=== PATIENT | female | born 2005 | race Caucasian/White ===

== ENCOUNTER 2023-09-20 20:53 | Emergency (ER) | payer OTHER, SELFPAY ==
[2023-09-20 20:54] VITALS: BP 136/72
[2023-09-20 21:52] VITALS: BMI 22.2
[2023-09-20] MEDS: NSS 1000 IV (21:52)
[2023-09-20 21:58] LABS: % Basophils 0.2 % (0-2); % Eosinophils 1.3 % (0-6); % Immature Granulocytes 0.4 % (0-0.5); % Lymphocytes 15.1 % (20.5-51.1); % Monocytes 5.4 % (1.7-9.3); % Neutrophils 77.6 % (42.2-75.2); Absolute Eosinophils 0.1 10^3/uL (0-0.7); Absolute Lymphocytes 1.6 10^3/uL (1.2-3.4); Absolute Monocytes 0.6 10^3/uL (0.1-0.6); Hemoglobin 13.3 g/dL (12.0-16.0); Mean Corp Hgb Conc. 35.9 g/dL (33.0-37.0); Mean Corpuscular Hgb 30.3 pg (27.0-31.0); Mean Corpuscular Volume 84.3 fL (81.0-99.0); Mean Platelet Volume 9.1 fL (7.4-10.4); Nucleated Red Blood Cells % 0 %; Platelet Count 282 10^3/uL (130-400); Red Blood Cell Count 4.39 10^6/uL (4.20-5.40); Red Cell Dist. Width 12.3 % (11.5-14.5); White Blood Cell Count 10.3 10^3/uL (4.8-10.8)
--- NOTE | 2023-09-20 22:14 | ED.GENMED ---
History of Present Illness
General
Chief Complaint: Problems
Source: patient
Exam Limitations: none
Time Seen by Provider: 09/20/23 21:20
Nursing documentation reviewed up to this point in time: agreed with
Travel History
Have you had any contact with someone who has COVID-19?: No
Do you have any symptoms of coronavirus? Fever > 100 degrees, chills, cough, shortness of breath, sore throat, loss of taste or smell, muscle aches, or headache?: No
History of Present Illness
History of Present Illness:
18-year-old female 3 para 1 AB 1 states her LMP was 06/27 and she had a normal 8-week gestational ultrasound at [facility] about 2 weeks ago. She states she started spotting vaginally last night and today the bleeding was heavier with cramps.
She does not notice any clots or tissue.
Her baby is 11 months old, she had preeclampsia during that . She delivered here and was seeing Dr. Angeles. She went to [facility] for the ultrasound but she does not want to go back to them and is interested in being followed by
[facility].
Past History
Past History
ED Past Medical History: Psychiatric (Depression, Anxiety, suicidal attempt) and Other (Migraine)
ED Past Surgical History: Gynecological () and Other ([place] tooth extraction)
Social History
Tobacco: Vaping
Alcohol: None
Drug: None
Personal: Single
Living: other (with boyfriend)
Review of Systems
Review of Systems
Allergies reviewed?: Yes
All Other Systems: ROS reviewed and negative except as documented in HPI and ROS
Constitutional: Denies fever
Respiratory: Denies trouble breathing
Cardiac: Denies chest pain
ABD/GI: Reports abdominal pain; Denies nausea or vomiting
: Reports bleeding; Denies dysuria
Skin: Reports no symptoms
Neurological: Reports no symptoms
Phy Exam
Physical Exam
Physical Exam:
GENERAL: No acute distress. A&Ox3.
CONSTITUTIONAL: Afebrile.
EYES: clear, conjunctivae normal
RESPIRATORY: Regular respirations, nonlabored, lungs clear.
CARDIOVASCULAR: Regular rate and rhythm, no murmurs, no rubs.
GI: Soft, nontender, normal BS
: no bleeding noted at this time
MUSCULOSKELETAL: Moves with ease. Well perfused.
SKIN: Warm, dry, pink
PSYCH: Normal mood and affect. Well kept, interactive and appropriate
NEUROLOGIC: Awake, alert and oriented. No focal neurological deficits
Course
Orders/Labs/Results
Orders:
Orders
09/20/23 21:34
US 1st Trimester Urgent
Comment:
Reason For Exam: cramping, bleeding
09/20/23 21:35
0.9% Sodium Chloride 1000 ml [Nss] 1,000 ml IV BOLUS
09/20/23 21:51
Beta HCG Quantitative Urgent
Is this a screen?: No
Complete Blood Count/With Diff Urgent
Comprehensive Metabolic Panel Urgent
Abnormal Lab Results
09/20/23
21:51
Absolute Neuts (auto) 8.0 H 10^3/uL
(1.4-6.5)
Neutrophils % 77.6 H %
(42.2-75.2)
Lymphocytes % 15.1 L %
(20.5-51.1)
09/20/23 21:51
09/20/23 21:51
Vital Signs
Initial and Last Documented VS:
Initial Vital Signs
Temp Pulse Resp BP Pulse Ox
98.8 F 109 18 136/72 100
09/20/23 20:54 09/20/23 20:54 09/20/23 20:54 09/20/23 20:54 09/20/23 20:54
Last Documented Vital Signs
Temp Pulse Resp BP Pulse Ox
98.8 F 62 18 113/75 99
09/20/23 20:54 09/20/23 23:55 09/20/23 23:55 09/20/23 22:31 09/20/23 23:55
Information
Weeks gestation: N/A
Location: N/A
MDM/Problems Addressed
Differential Diagnosis Includes:
Bleeding in early , threatened miscarriage, subchorionic hematoma/bleeding
MDM/Problems Addressed:
18-year-old female 3 para 1 AB 1 states her LMP was 06/27 and she had a normal 8-week gestational ultrasound at [facility] about 2 weeks ago. She states she started spotting vaginally last night and today the bleeding was heavier with cramps.
She does not notice any clots or tissue.
Her baby is 11 months old, she had preeclampsia during that . She delivered here and was seeing Dr. Angeles. She went to [facility] for the ultrasound but she does not want to go back to them and is interested in being followed by
[facility].
Afebrile, NAD
No significant vaginal bleeding at this time
CBC normal
CMP normal
hCG quant: [id number]
11:15 PM
Ultrasound radiology read: IMPRESSION: Single live intrauterine with a sonographic mean gestational age of 12 weeks and 1 day based on the crown-rump length measurement.
Patient informed and given copy of her ultrasound report and blood work.
Referred to [facility] Dr. Chin
*Critical Care Note
Total Time (30-74mins, 75-104mins- exclusive of procedures): Not Applicable
ED Attending Note
-
Portions of this chart may have been created with voice recognition software.� Occasional wrong word or��sound alike� substitutions may have occurred due to the inherent limitations of voice recognition software.
Discharge Plan
Departure
Patient Disposition: Home (Routine Discharge)
Date of Disposition: 09/20/23
Time of Disposition: 23:20
Patient with high blood pressure during this ER visit?: No
Condition: Good
Discharge Problem:
Bleeding in early
Instructions: Threatened Miscarriage (DC), Bleeding in Early (DC)
Prescriptions:
No Action
acetaminophen 325 mg Tablet
650 mg PO Q4HPRN PRN (Reason: mild pain) Qty: 30 0RF
sennosides-docusate sodium [Senna Plus] 8.6-50 mg Tablet
1 tab PO DAILYPRN PRN (Reason: constipation) Qty: 10 0RF
ibuprofen 600 mg Tablet
600 mg PO Q6HPRN PRN (Reason: moderate pain/cramps) Qty: 30 0RF
sertraline 50 mg Tablet
50 mg PO DAILY Qty: 30 0RF
uopyrs19-dhup fum,mm-grugm-hji 32-1.25-110 mg Capsule
1 cap PO DAILY
Referrals:
Maryan Chin MD [Active] - Next open appointment
UNKNOWN - PT DOES,NOT KNOW [Family Provider] -
Activity Restrictions/Additional Instructions:
As we discussed, your ultrasound shows a normal .
Call the [facility] office tomorrow make next available appointment.
Interventions
Interventions:
*Risk Screen - Suicide Last Done: 09/20/23 20:54
*General Assessment Last Done: 09/20/23 20:54
*Neglect/Abuse Screening Last Done: 09/20/23 20:54
ED- Fall Risk Assessment Last Done: 09/20/23 21:59
*ED COVID-19 Vaccine History Last Done: 09/20/23 23:55
*Nursing Disposition Last Done: 09/20/23 23:55
ED-Female Genitourinary Assessment Last Done: 09/20/23 21:58
Discharge Date and Time
Discharge Date/Time: 09/20/23 23:56
Print Language: TAIWANESE
[2023-09-20 22:15] LABS: ALT (SGPT) 12 U/L (0-35); AST (SGOT) 18 U/L (14-36); Albumin 4.2 g/dl (3.5-5.0); Alkaline Phosphatase 50 U/L (38-126); Blood Urea Nitrogen 11 mg/dl (7-17); Calcium 9.6 mg/dl (8.4-10.2); Carbon Dioxide 25 mmol/L (22-30); Chloride 104 mmol/L (98-107); Estimated Creatinine Clearance 118 ml/min; Glucose 91 mg/dl (70-99); Potassium 3.9 mmol/L (3.5-5.1); Sodium 139 mmol/L (135-145); Total Bilirubin 0.5 mg/dl (0.2-1.3); Total Protein 7.1 g/dl (6.3-8.2); eGFR > 60.00
[2023-09-20 22:31] VITALS: BP 113/75
== END 2023-09-20 23:56 | disposition home or self-care (01) ==
LOC: EMR 20:53
PROVIDERS: Registered Nurse; EMERGENCY PHYSICIAN Emergency Medicine
DX: O20.9 Hemorrhage in early pregnancy, unspecified (principal); Z3A.12 12 weeks gestation of pregnancy
CPT/HCPCS: 99284; 96360; 76801; 80053; 84702; 85025

== ENCOUNTER → 2023-09-27 15:15 | Outpatient (REF) | payer OTHER, SELFPAY | LOC: RAD 15:15 | PROVIDERS: ATTENDING PHYSICIAN Nurse Practitioner Family | DX: O26.859 Spotting complicating pregnancy, unspecified trimester (principal) | CPT/HCPCS: 76801 ==

== ENCOUNTER 2023-12-21 20:37 | Observation (INO) | payer OTHER, SELFPAY ==
[2023-12-21 20:44] VITALS: BP 112/69; BMI 23.8
== END 2023-12-21 21:59 | disposition home or self-care (01) ==
LOC: LDRP 20:37
PROVIDERS: ADMITTING PHYSICIAN Obstetrics & Gynecology
DX: O36.8120 Decreased fetal movements, second trimester, not applicable or unspecified (principal); Z3A.25 25 weeks gestation of pregnancy; O46.92 Antepartum hemorrhage, unspecified, second trimester; O99.342 Other mental disorders complicating pregnancy, second trimester; F32.A Depression, unspecified; O26.20 Pregnancy care for patient with recurrent pregnancy loss, unspecified trimester; O09.292 Supervision of pregnancy with other poor reproductive or obstetric history, second trimester; F41.9 Anxiety disorder, unspecified; F60.3 Borderline personality disorder; F10.11 Alcohol abuse, in remission; Z91.51 Personal history of suicidal behavior; Z62.890 Parent-child estrangement NEC; Z63.4 Disappearance and death of family member; Z63.79 Other stressful life events affecting family and household; Z91.148 Patient's other noncompliance with medication regimen for other reason
CPT/HCPCS: 59025; G0378

== ENCOUNTER 2023-12-30 14:04 | Observation (INO) | payer OTHER, SELFPAY ==
[2023-12-30 14:28] VITALS: BP 113/64; BMI 22.9
[2023-12-30 15:24] LABS: Hematocrit 27.2 % (37.0-47.0); Hemoglobin 9.4 g/dL (12.0-16.0); Mean Corp Hgb Conc. 34.6 g/dL (33.0-37.0); Mean Platelet Volume 9.1 fL (7.4-10.4); Platelet Count 268 10^3/uL (130-400); Red Blood Cell Count 3.24 10^6/uL (4.20-5.40); Red Cell Dist. Width 11.9 % (11.5-14.5); White Blood Cell Count 11.9 10^3/uL (4.8-10.8)
[2023-12-30 15:29] LABS: INR 1.03; PT 13.3 Sec (11.4-14.6)
[2023-12-30 15:30] LABS: APTT 27.9 Sec (23.4-35.0); Fibrinogen 295 MG/DL (199-459)
[2023-12-30] MEDS: TYLENOL 1000 MG PO (16:52)
== END 2023-12-30 17:49 | disposition home or self-care (01) ==
LOC: LDRP 14:04
PROVIDERS: ADMITTING PHYSICIAN Obstetrics & Gynecology
DX: R10.9 Unspecified abdominal pain (principal); Z3A.26 26 weeks gestation of pregnancy; W06.XXXA Fall from bed, initial encounter; Y93.89 Activity, other specified; Y92.003 Bedroom of unspecified non-institutional (private) residence as the place of occurrence of the external cause; O99.012 Anemia complicating pregnancy, second trimester; D64.9 Anemia, unspecified; J45.909 Unspecified asthma, uncomplicated; F43.10 Post-traumatic stress disorder, unspecified; F60.3 Borderline personality disorder; F10.11 Alcohol abuse, in remission; O99.342 Other mental disorders complicating pregnancy, second trimester; F41.9 Anxiety disorder, unspecified; F31.9 Bipolar disorder, unspecified; G43.909 Migraine, unspecified, not intractable, without status migrainosus; Z63.4 Disappearance and death of family member; Z62.890 Parent-child estrangement NEC; Z62.898 Other specified problems related to upbringing; Z91.51 Personal history of suicidal behavior; Z81.8 Family history of other mental and behavioral disorders
CPT/HCPCS: 76815; 85027; 85384; 85610; 85730; 86850; 86900; 86901; G0378

== ENCOUNTER 2024-02-21 21:14 | Observation (INO) | payer OTHER, SELFPAY ==
[2024-02-21 21:25] VITALS: BMI 24.2
[2024-02-21 22:10] LABS: Hematocrit 28.2 % (37.0-47.0); Hemoglobin 9.3 g/dL (12.0-16.0); Mean Corpuscular Hgb 26.1 pg (27.0-31.0); Mean Platelet Volume 9.6 fL (7.4-10.4); Platelet Count 241 10^3/uL (130-400); Red Blood Cell Count 3.57 10^6/uL (4.20-5.40); White Blood Cell Count 15.1 10^3/uL (4.8-10.8)
[2024-02-21] MEDS: TYLENOL 1000 MG PO (22:20)
[2024-02-21 22:21] LABS: INR 0.97; PT 13.2 Sec (11.4-14.6)
[2024-02-21 22:22] LABS: APTT 28.4 Sec (23.4-35.0); Fibrinogen 414 MG/DL (199-459)
[2024-02-21 22:23] LABS: ALT (SGPT) 12 U/L (0-35); AST (SGOT) 19 U/L (14-36); Albumin 3.6 g/dl (3.5-5.0); Alkaline Phosphatase 110 U/L (38-126); Blood Urea Nitrogen 6 mg/dl (7-17); Calcium 8.9 mg/dl (8.4-10.2); Carbon Dioxide 23 mmol/L (22-30); Chloride 104 mmol/L (98-107); Estimated Creatinine Clearance 117 ml/min; Glucose 86 mg/dl (70-99); Potassium 3.9 mmol/L (3.5-5.1); Sodium 136 mmol/L (135-145); Total Bilirubin 0.4 mg/dl (0.2-1.3); Total Protein 6.3 g/dl (6.3-8.2); eGFR > 60.00
[2024-02-21 23:06] LABS: Urine Albumin Negative (Neg - Trace); Urine Bilirubin Negative (Negative); Urine Character Clear (Clear); Urine Color Yellow; Urine Glucose Negative (Negative); Urine Ketone 1+ (Negative); Urine Leukocyte Negative (Negative); Urine Nitrite Negative (Negative); Urine Occult Blood Negative (Negative); Urine Urobilinogen Negative (Neg - 1+)
[2024-02-22] MEDS: BENADRYL 25 MG IV (01:02)
[2024-02-22] MEDS: REGLAN 10 MG IV (01:03)
[2024-02-22] MEDS: LR 1000 IV (03:06)
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
== END 2024-02-22 10:29 | disposition home or self-care (01) ==
LOC: LDRP 21:14
PROVIDERS: ADMITTING PHYSICIAN Student in an Organized Health Care Education/Training Program
DX: M54.9 Dorsalgia, unspecified (principal); Y04.2XXA Assault by strike against or bumped into by another person, initial encounter; Y93.89 Activity, other specified; Y92.009 Unspecified place in unspecified non-institutional (private) residence as the place of occurrence of the external cause; S70.01XA Contusion of right hip, initial encounter; R51.9 Headache, unspecified; O43.123 Velamentous insertion of umbilical cord, third trimester; Z3A.34 34 weeks gestation of pregnancy; O09.33 Supervision of pregnancy with insufficient antenatal care, third trimester; O99.343 Other mental disorders complicating pregnancy, third trimester; F41.9 Anxiety disorder, unspecified; F10.11 Alcohol abuse, in remission; F43.10 Post-traumatic stress disorder, unspecified; F32.A Depression, unspecified; Z91.51 Personal history of suicidal behavior; Z81.8 Family history of other mental and behavioral disorders; Z63.79 Other stressful life events affecting family and household; Z62.890 Parent-child estrangement NEC; Z62.810 Personal history of physical and sexual abuse in childhood; Z91.410 Personal history of adult physical and sexual abuse
CPT/HCPCS: 76815; 76819; 80053; 81003; 85027; 85384; 85460; 85610; 85730; 86850; 86900; 86901; 87086; 99285; G0378

== ENCOUNTER 2024-02-21 22:50 | Emergency (ER) | payer OTHER, SELFPAY ==
[2024-02-21 22:52] VITALS: BP 109/68
[2024-02-21 22:58] VITALS: BP 109/68
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
== END 2024-02-22 00:13 ==
LOC: EMR 22:50
PROVIDERS: EMERGENCY PHYSICIAN Student in an Organized Health Care Education/Training Program; FAMILY PHYSICIAN Family Medicine
DX: O99.891 Other specified diseases and conditions complicating pregnancy (principal); S80.11XA Contusion of right lower leg, initial encounter; Y04.0XXA Assault by unarmed brawl or fight, initial encounter; O99.333 Smoking (tobacco) complicating pregnancy, third trimester; F17.290 Nicotine dependence, other tobacco product, uncomplicated; Z3A.34 34 weeks gestation of pregnancy; Z91.51 Personal history of suicidal behavior
CPT/HCPCS: 99282

== ENCOUNTER 2024-02-29 14:42 | Observation (INO) | payer OTHER, SELFPAY ==
[2024-02-29 14:57] VITALS: BMI 25.6
[2024-02-29 15:00] VITALS: BP 107/66
== END 2024-02-29 16:28 | disposition home or self-care (01) ==
LOC: LDRP 14:42
PROVIDERS: ADMITTING PHYSICIAN Advanced Practice Midwife
DX: O99.343 Other mental disorders complicating pregnancy, third trimester (principal); F32.A Depression, unspecified; Z3A.35 35 weeks gestation of pregnancy; O99.344 Other mental disorders complicating childbirth; F41.9 Anxiety disorder, unspecified
CPT/HCPCS: 59025; G0378

== ENCOUNTER 2024-03-11 15:58 | Observation (INO) | payer OTHER, SELFPAY ==
[2024-03-11 16:14] VITALS: BP 120/72; BMI 26.4
== END 2024-03-11 20:28 | disposition home or self-care (01) ==
LOC: LDRP 15:58
PROVIDERS: ADMITTING PHYSICIAN Student in an Organized Health Care Education/Training Program
DX: O36.8130 Decreased fetal movements, third trimester, not applicable or unspecified (principal); Z3A.36 36 weeks gestation of pregnancy; O43.123 Velamentous insertion of umbilical cord, third trimester
CPT/HCPCS: 76818; 76819; G0378

== ENCOUNTER 2024-03-19 10:37 | Observation (INO) | payer OTHER, SELFPAY ==
[2024-03-19 11:09] VITALS: BP 114/78; BMI 27.1
[2024-03-19] MEDS: LR 1000 IV (11:35)
[2024-03-19] MEDS: ZOFRAN 4 MG IV (11:36)
[2024-03-19 11:39] LABS: Hematocrit 27.4 % (37.0-47.0); Hemoglobin 8.9 g/dL (12.0-16.0); Mean Corp Hgb Conc. 32.5 g/dL (33.0-37.0); Mean Corpuscular Hgb 24.5 pg (27.0-31.0); Mean Corpuscular Volume 75.3 fL (81.0-99.0); Mean Platelet Volume 9.6 fL (7.4-10.4); Platelet Count 274 10^3/uL (130-400); Red Blood Cell Count 3.64 10^6/uL (4.20-5.40); Red Cell Dist. Width 13.8 % (11.5-14.5); White Blood Cell Count 11.1 10^3/uL (4.8-10.8)
[2024-03-19] MEDS: BENADRYL 25 MG IV (11:39)
[2024-03-19] MEDS: REGLAN 10 MG IV (11:40)
[2024-03-19 11:50] LABS: ALT (SGPT) 11 U/L (0-35); AST (SGOT) 18 U/L (14-36); Albumin 3.5 g/dl (3.5-5.0); Alkaline Phosphatase 117 U/L (38-126); Blood Urea Nitrogen 7 mg/dl (7-17); Calcium 8.7 mg/dl (8.4-10.2); Carbon Dioxide 22 mmol/L (22-30); Chloride 104 mmol/L (98-107); Estimated Creatinine Clearance > 125 ml/min; Glucose 99 mg/dl (70-99); Potassium 3.9 mmol/L (3.5-5.1); Sodium 136 mmol/L (135-145); Total Bilirubin 0.5 mg/dl (0.2-1.3); Total Protein 6.1 g/dl (6.3-8.2); eGFR > 60.00
[2024-03-19 12:09] LABS: Protein/creatinine Ratio 0.1; Urine Protein 12 mg/dl
== END 2024-03-19 15:21 | disposition home or self-care (01) ==
LOC: LDRP 10:37
PROVIDERS: ADMITTING PHYSICIAN Student in an Organized Health Care Education/Training Program
DX: O98.513 Other viral diseases complicating pregnancy, third trimester (principal); B34.9 Viral infection, unspecified; R51.9 Headache, unspecified; R11.2 Nausea with vomiting, unspecified; J45.909 Unspecified asthma, uncomplicated; O99.343 Other mental disorders complicating pregnancy, third trimester; F41.9 Anxiety disorder, unspecified; Z3A.38 38 weeks gestation of pregnancy; O43.123 Velamentous insertion of umbilical cord, third trimester
CPT/HCPCS: 80053; 82570; 84156; 85027; 86850; 86900; 86901; G0378

== ENCOUNTER 2024-03-22 11:11 | Inpatient (IN) | payer OTHER, SELFPAY ==
[2024-03-22 11:17] VITALS: BP 129/90; BMI 27.5
[2024-03-22] MEDS: REGLAN 10 MG IV (12:11)
[2024-03-22] MEDS: LR 1000 IV ×2 (12:11→21:45)
[2024-03-22] MEDS: BENADRYL 25 MG IV ×2 (12:12→16:16)
[2024-03-22] MEDS: TYLENOL 1000 MG PO (12:12)
[2024-03-22 12:29] LABS: ALT (SGPT) 11 U/L (0-35); AST (SGOT) 20 U/L (14-36); Albumin 3.7 g/dl (3.5-5.0); Alkaline Phosphatase 131 U/L (38-126); Blood Urea Nitrogen 7 mg/dl (7-17); Carbon Dioxide 25 mmol/L (22-30); Chloride 102 mmol/L (98-107); Estimated Creatinine Clearance > 125 ml/min; Glucose 85 mg/dl (70-99); Potassium 3.9 mmol/L (3.5-5.1); Sodium 132 mmol/L (135-145); Total Bilirubin 0.6 mg/dl (0.2-1.3); Total Protein 6.2 g/dl (6.3-8.2); eGFR > 60.00
[2024-03-22 12:57] LABS: Protein/creatinine Ratio 0.3; Urine Protein 12 mg/dl
[2024-03-22 13:14] LABS: Hematocrit 29.4 % (37.0-47.0); Hemoglobin 9.2 g/dL (12.0-16.0); Mean Corp Hgb Conc. 31.3 g/dL (33.0-37.0); Mean Corpuscular Hgb 24.1 pg (27.0-31.0); Mean Corpuscular Volume 77.2 fL (81.0-99.0); Mean Platelet Volume 9.9 fL (7.4-10.4); Platelet Count 273 10^3/uL (130-400); Red Blood Cell Count 3.81 10^6/uL (4.20-5.40); Red Cell Dist. Width 13.9 % (11.5-14.5); White Blood Cell Count 10.7 10^3/uL (4.8-10.8)
[2024-03-22] MEDS: CYTOTEC 25 MICROGRAM PO (16:16)
[2024-03-22] MEDS: CYTOTEC 50 MICROGRAM PO (20:59)
[2024-03-22] MEDS: STADOL 1 MG IV (22:13)
[2024-03-23] MEDS: SUBLIMAZE 100 MCG EPIDURAL (00:42)
[2024-03-23] MEDS: FENTANYL/BUPIVACAINE 100 EPIDURAL (00:42)
[2024-03-23] MEDS: LR 1000 IV (00:58)
[2024-03-23] MEDS: CYTOTEC PO ×2 (01:00→04:00)
[2024-03-23] MEDS: PITOCIN 30 UNITS/NSS 500 ML IV ×2 (06:35→09:24)
[2024-03-23] MEDS: SENOKOT-S 1 TABLET PO (11:12)
[2024-03-23] MEDS: TYLENOL 650 MG PO ×3 (11:12→23:19)
[2024-03-23] MEDS: MOTRIN 600 MG PO ×3 (11:13→23:20)
[2024-03-23] MEDS: ANUSOL HC 25 MG RECTAL (21:11)
[2024-03-24] MEDS: MOTRIN 600 MG PO ×3 (06:16→22:53)
[2024-03-24] MEDS: TYLENOL 650 MG PO ×3 (06:16→22:53)
[2024-03-24] MEDS: ANUSOL HC 25 MG RECTAL ×2 (08:20→19:49)
--- NOTE | 2024-03-24 11:23 | CM ---
CM received call from mothers nurse requesting to meet with mother, mother's significant other recently left Hospital and mother shared concerns regarding relationship to nurse (mother unsure if she wants baby to have same last name as father).
Mother seen bedside nursing child, Marvin. Mother reports she has an 18 month old at home, Galo, who is currently with his father, Iván Grover. CM confirmed mothers contact number adn address on face sheet. Mother reports her number and address
have both changed, , address [address], [address], [place]. Mother reports babies father is Camden Bhakta, mother, father, and baby reside in the home. Mother reports father is stating child is not his. Mother tearful, reports
this is hurtful and disrespectful to her. Mother reports father wants to take baby to his mothers home on [address], mother does not want this. CM inquired about support that mother has- mother reports her brother and best friend are supportive, are
able to stay with her at apartment if needed. Mother reports she does not feel up to leaving the home and wants to be with her son on [address], mother reports she is agreeable to having visitors at her home. CM supported mother and reports she is
advocating for herself and her child, holidays can be difficult when visiting multiple family members. Mother reports she has a good relationship with her older sons father and they co-parent well. Mother reports her son, Galo, is in early
intervention and has two therapist and a social media assistant, all of whom are supportive to mother. Mother reports she has her own therapist through [facility], they have already reached out to her about coming to see her new baby in the home. Mother
reports she receives food stamps, new baby will go to [employer] [place], her oldest son goes to [employer] [place]. Mother confirms she has supplies for her baby. Mother inquiring if CM can return when father is here, CM will be available- relayed to nurse.
Plan; CM will follow/be available to meet with mother/father.
[2024-03-24] MEDS: ZOLOFT 50 MG PO (12:29)
--- NOTE | 2024-03-24 15:51 | CON.MD ---
Consultation - Medical
-
19 yr old F who recently delivered her second child currently in L&D, psychiatry consulted due to concerns about patient struggling emotionally today in the context of social stressors at home. Patient was prescribed zoloft 50mg during her 3rd
trimester, stopped a week ago and it seems pt requested to restart it this AM.
Attempted to interview pt but she was not open to an in depth interview with psychiatry - she reported that she never really took the zoloft while and so when she asked this AM to resume, she is really only now just started the SSRI. She
reported that she has a therapist and finds them helpful and is not in need of a psychiatrist at this time. SHe says she indeed is struggling with her emotions today, however she says it does not feel unusual for having given yesterday and is
not concerned about managing mood or anxiety when discharged.
To note, it seems CM has been involved with pt as well as pt was struggling with managing co-parenting and holiday planning with her older son (different father), however this seems to have been addressed and patient has therapy via [facility], who
plan to come to the home as well.
Unspecified depression
MSE:
calm,cooperative,,speech is normal rate & rhythm,,mood is OK, affect is appropriate & congruent to mood,, thought process is logical & goal directed, thought content: denies SI/HI/AVH/delusions. AAOx3. Memory not formally tested. Insight fair.
Judgement fair
Continue zoloft 50mg - needs 3-4 weeks to see therapeutic effect, as pt has not actually been taking prior to today would not change at this time
To f/u with her outpatient therapeutic supports
No indication for acute psychiatric intervention at this time
[2024-03-24] MEDS: SENOKOT-S 1 TABLET PO (19:53)
[2024-03-25] MEDS: MOTRIN 600 MG PO (06:11)
[2024-03-25] MEDS: TYLENOL 650 MG PO (06:12)
[2024-03-25] MEDS: ZOLOFT 50 MG PO (07:56)
[2024-03-25] MEDS: ANUSOL HC 25 MG RECTAL (07:56)
[2024-03-25] MEDS: COLACE 100 MG PO (10:27)
== END 2024-03-25 10:59 | disposition home or self-care (01) | DRG 807 ==
LOC: LDRP 11:11
PROVIDERS: Student in an Organized Health Care Education/Training Program; ADMITTING PHYSICIAN Advanced Practice Midwife; CONSULT PHYSICIAN Psychiatry & Neurology Psychiatry
PROC: 3E0DXGC Introduction of Other Therapeutic Substance into Mouth and Pharynx, External Approach (ICD-10-PCS; 2024-03-22)
PROC: 10907ZC Drainage of Amniotic Fluid, Therapeutic from Products of Conception, Via Natural or Artificial Opening (ICD-10-PCS; 2024-03-23)
PROC: 10E0XZZ Delivery of Products of Conception, External Approach (ICD-10-PCS; 2024-03-23)
PROC: 4A1HXCZ Monitoring of Products of Conception, Cardiac Rate, External Approach (ICD-10-PCS; 2024-03-23)
DX: O14.04 Mild to moderate pre-eclampsia, complicating childbirth (principal); Z37.0 Single live birth; Z3A.38 38 weeks gestation of pregnancy; O99.344 Other mental disorders complicating childbirth; F32.A Depression, unspecified; F41.9 Anxiety disorder, unspecified
CPT/HCPCS: 80053; 82570; 84156; 85027; 86850; 86900; 86901

== ENCOUNTER 2024-11-23 20:31 | Emergency (ER) | payer OTHER, SELFPAY ==
[2024-11-23 20:35] VITALS: BP 127/97
[2024-11-23 21:01] VITALS: BP 134/89
[2024-11-23 21:15] LABS: COVID-19 Antigen Negative (Negative)
[2024-11-23 22:00] VITALS: BP 121/69
[2024-11-23 23:00] VITALS: BP 97/47
--- NOTE | 2024-11-23 23:13 | ED.GENMED ---
History of Present Illness
General
Chief Complaint: Cough
Time Seen by Provider: 11/23/24 23:13
History of Present Illness
History of Present Illness:
PAST MEDICAL HISTORY AND REVIEW OF OLD RECORDS
- I reviewed records, the patient had care with at the end of last year.
Note:
CHIEF COMPLAINT(S)
Persistent cough and associated discomfort.
HISTORY OF PRESENT ILLNESS
The patient is a 19-year-old female who is approximately seven weeks . She presented to the emergency department due to a persistent cough that began on Tuesday, concurrent with her childrens symptoms. The patient reports being a heavy user
of vaporized nicotine products and is attempting cessation due to her , noting that it took about three months to quit entirely during previous pregnancies. She uses a nebulizer and inhaler at home. The patient describes her cough as dry,
accompanied by significant tightness in the chest and back pain during coughing episodes. She also reports episodes of lightheadedness while coughing. She denies any history of illnesses such as asthma. The patient�s cough is more severe than a
similar episode reported last month. Oxygen saturation levels are noted to be 99-100%. The patient has been taking acetaminophen for pain relief.
SOCIAL HISTORY
The patient reports being a heavy user of vaporized nicotine products. She is currently attempting to quit due to her .
PHYSICAL EXAM
General: Alert, prominent dry cough causing some distress to the patient
Skin: Warm, dry.
Head: Normocephalic, atraumatic.
Neck: Supple, trachea midline.
Eyes, Ears, Nose, Mouth, and Throat: Oral mucosa moist.
Cardiovascular: Normal peripheral perfusion, No edema.
Respiratory: Respirations are non-labored; lung sounds clear.
Gastrointestinal: Abdomen nondistended.
Back: Normal range of motion, Normal alignment.
Musculoskeletal: Normal movement, normal strength.
Neurological: Alert and oriented to person, place, time, and situation, No focal neurological deficit observed.
Psychiatric: Cooperative, appropriate mood & affect.
PLAN
1. The patient will undergo a chest X-ray to rule out pneumonia.
2. Administer a breathing treatment to assist with symptomatic relief.
3. Continue use of acetaminophen for pain as needed.
DIFFERENTIAL DIAGNOSIS
The Differential Diagnosis includes, in no particular order and is not limited to:
1. Viral upper respiratory infection
2. Bronchitis
3. Asthma
4. Pneumonia
5. Allergic rhinitis
6. Gastroesophageal reflux disease (GERD)
7. Postnasal drip syndrome
8. Chronic obstructive pulmonary disease (COPD)
9. Pertussis
10. Environmental irritant exposure
SUMMARY OF ENCOUNTER
The patient, a 19-year-old female approximately seven weeks , presented to the emergency department with a persistent dry cough, chest tightness, and back pain. Notably, she experiences lightheadedness during coughing episodes. While the
patients examination, including a chest X-ray, appeared generally acceptable, there was a slight area of concern potentially indicative of subtle pneumonia. The patient has a history of heavy vaporized nicotine use and utilized a nebulizer and
inhaler at home. The patient had been taking acetaminophen for pain relief. Given the subtle findings and to provide symptomatic relief, it was decided to administer azithromycin, considering its anti-inflammatory properties and safety in .
ASSESSMENT
The patients symptoms and imaging findings suggest the possibility of a viral upper respiratory tract infection or a mild case of pneumonia. Considering her and subtle imaging findings, initiating treatment with azithromycin was deemed
appropriate.
PLAN
Initiate a course of azithromycin for five days, considering its safety in and potential benefits. Continue using acetaminophen for pain management as needed. The patient will be monitored for symptom improvement and will follow up with an
outpatient provider as necessary.
MEDICATION RECONCILIATION
Administer one dose of azithromycin in the emergency department and provide a prescription for azithromycin for four additional days.
MEDICAL DECISION MAKING
- Complexity of Data Reviewed: Chronic conditions affecting care [no past medical history apart from current respiratory symptoms]. Differential Diagnosis includes viral upper respiratory infection, bronchitis, asthma, pneumonia, allergic rhinitis,
GERD, postnasal drip syndrome, COPD, pertussis, and environmental irritant exposure.
- Data:
Category 1
Tests and documents: Reviewed chest X-ray for subtle findings potentially indicative of pneumonia, with slight discrepancy from historical imaging.
- Risk:
Prescription medication was prescribed for management and monitoring of current symptoms with azithromycin providing a balance of risk given its safety profile in .
DIAGNOSIS
- Viral upper respiratory infection (J00)
- Consider possible pneumonia (J18.9)
RADIOLOGY
- Suspect small density at the right base
LABS
- COVID-negative, flu negative
Past History
Past History
ED Past Medical History: Psychiatric (Depression, Anxiety, suicidal attempt) and Other (Migraine)
ED Past Surgical History: Gynecological () and Other (Orwell tooth extraction)
Social History
Tobacco: Vaping
Alcohol: None
Drug: None
Personal: Single
Living: other (with boyfriend)
Phy Exam
Physical Exam
Physical Exam:
See HPI
Course
Orders/Labs/Results
Orders:
Orders
11/23/24 20:39
Electrocardiogram (*1) Urgent
Reason for Study: Shortness of Breath
EKG- Treatment ONCE
11/23/24 20:44
COVID-19 Antigen Urgent
Source: Nasal Swab
Influenza A+B Rapid Molecular Urgent
DEMARCO Source: Nasal Swab
Specimen Description:
11/23/24 23:20
Ipratropium/Albuterol Sulfate [Duoneb] 3 ml INH R NOW STA
CR Chest - 2 Views Urgent
Comment:
Reason For Exam: severe cough; pt 7wks
11/24/24 00:06
Azithromycin [Zithromax] 500 mg PO NOW STA
Vital Signs
Initial and Last Documented VS:
Initial Vital Signs
Temp Pulse Resp BP Pulse Ox
37.1 C 104 16 127/97 98
11/23/24 20:35 11/23/24 20:35 11/23/24 20:35 11/23/24 20:35 11/23/24 20:35
Last Documented Vital Signs
Temp Pulse Resp BP Pulse Ox
37.1 C 104 16 127/97 100
11/23/24 20:35 11/23/24 20:35 11/23/24 20:35 11/23/24 20:35 11/23/24 23:16
*Pulse Oximetry
SaO2: 100
Oxygen Mode of Delivery: Room air
Patient hypoxic: no
*Critical Care Note
Total Time (30-74mins, 75-104mins- exclusive of procedures): Not Applicable
ED Attending Note
-
Portions of this chart may have been created with voice recognition software.� Occasional wrong word or��sound alike� substitutions may have occurred due to the inherent limitations of voice recognition software.
Discharge Plan
Departure
Patient Disposition: Home (Routine Discharge)
Date of Disposition: 11/24/24
Time of Disposition: 00:05
Patient with high blood pressure during this ER visit?: Yes
Discharge Problem:
Pneumonia
Instructions: Pneumonia, Adult (DC), BLOOD PRESSURE
Prescriptions:
New
azithromycin [Zithromax] 250 mg tablet
250 mg PO DAILY Qty: 4 0RF
No Action
hydrocortisone acetate 25 mg Suppository
25 mg OK BID Qty: 12 0RF
lorazepam 0.5 mg Tablet
0.5 mg PO Q4HPRN PRN (Reason: anxiety) Qty: 10 0RF
docusate sodium 100 mg Capsule
100 mg PO NOW Qty: 20 0RF
ibuprofen 600 mg Tablet
600 mg PO Q6HPRN PRN (Reason: moderate pain/cramps) Qty: 30 0RF
acetaminophen 325 mg Tablet
650 mg PO Q4HPRN PRN (Reason: mild pain) Qty: 30 0RF
sertraline 50 mg Tablet
50 mg PO DAILY Qty: 30 0RF
Referrals:
Maria Antonia Colvin PA [Family Provider, Family Practice]
Activity Restrictions/Additional Instructions:
I suspect there may be a very small pneumonia at the right base. However your lungs sounded clear. We can try azithromycin. I sent a prescription to your pharmacy. Return here if worse or other concerns.
Interventions
Interventions:
ED- Pulmonary Assessment Last Done: 11/23/24 21:24
Discharge Date and Time
Print Language: MOLDOVAN
[2024-11-23] MEDS: DUONEB 3 ML INH (23:27)
[2024-11-24] MEDS: ZITHROMAX 500 MG PO (00:12)
== END 2024-11-24 00:20 | disposition home or self-care (01) ==
LOC: EMR 20:31
PROVIDERS: Student in an Organized Health Care Education/Training Program; EMERGENCY PHYSICIAN Emergency Medicine; FAMILY PHYSICIAN Physician Assistant Medical
DX: O99.511 Diseases of the respiratory system complicating pregnancy, first trimester (principal); J18.9 Pneumonia, unspecified organism; B97.89 Other viral agents as the cause of diseases classified elsewhere; O99.331 Smoking (tobacco) complicating pregnancy, first trimester; Z3A.01 Less than 8 weeks gestation of pregnancy
CPT/HCPCS: 94640; 99284; 71046; 87502; 87811; 93005